=== PATIENT | male | born 1990 | race Caucasian/White ===

== ENCOUNTER 2021-03-16 21:44 | Emergency (ER) | payer OTHER ==
[2021-03-16 22:22] VITALS: BMI 21.6
[2021-03-16] MEDS ORDERED: MAG HYDROX/AL HYDROX/SIMETH 30 ML UNIT-DOSE CUP PO ONE (23:54)
[2021-03-16] MEDS ORDERED: FAMOTIDINE 20 MG/50 ML IVPB 20 MG/50 ML MG IVPB ONE (23:54)
[2021-03-16] MEDS ORDERED: ONDANSETRON 4 MG/2 ML VIAL IVPUSH ONE (23:54)
[2021-03-16] MEDS ORDERED: ACETAMINOPHEN 1000 MG/100 ML VIAL (NON FORMULARY) IVPB ONE (23:54)
[2021-03-17] MEDS ORDERED: MAG HYDROX/AL HYDROX/SIMETH 30 ML UNIT-DOSE CUP ONE (00:29)
[2021-03-17] MEDS ORDERED: ACETAMINOPHEN INJECTION 100 ML IVPB ONE (00:30)
[2021-03-17] MEDS ORDERED: FAMOTIDINE 20 MG/50 ML IVPB 20 MG/50 ML MG IVPB ONE (00:31)
[2021-03-17] MEDS ORDERED: ONDANSETRON 4 MG/2 ML VIAL ONE (00:31)
[2021-03-17 00:42] LABS: BASO % 0.6 % (0-2.0); HEMATOCRIT 46.8 % (35.4-49); HEMOGLOBIN 15.5 GM/dL (11.7-16.9); LYMPH % 8.6 % (8-40); MCH 25.1 pg (25.7-33.7); MCHC 33.1 g/dl (32.0-35.9); MEAN CELL VOLUME 75.9 fl (80-96); MEAN PLT VOLUME 9.3 fl (7.5-11.1); MONO % 5.5 % (3.8-10.2); NEUT % 85.3 % (42.8-82.8); PLATELET COUNT 144 10^3/uL (134-434); RBC 6.16 M/mm3 (4.00-5.60); RDW 16.1 % (11.9-15.9); WHITE BLOOD COUNT 7.2 K/mm3 (4.0-10.0)
[2021-03-17 01:10] LABS: CREATININE 1.5 mg/dL (0.55-1.3)
[2021-03-17 01:11] LABS: BILIRUBIN,TOTAL 0.4 mg/dL (0.2-1)
[2021-03-17 01:24] VITALS: BP 123/79; PULSE 76; TEMP 98.1
[2021-03-17] MEDS ORDERED: SODIUM CHLORIDE 0.9% 500 ML INFUS.BAG IV ONE (02:31)
== END 2021-03-17 03:31 | disposition home or self-care (01) ==
LOC: JER 21:44
PROC: 3E0333Z Introduction of Anti-inflammatory into Peripheral Vein, Percutaneous Approach (ICD-10-PCS; principal; 2021-03-16)
PROC: 3E033GC Introduction of Other Therapeutic Substance into Peripheral Vein, Percutaneous Approach (ICD-10-PCS; 2021-03-16)
PROC: 3E033GC Introduction of Other Therapeutic Substance into Peripheral Vein, Percutaneous Approach (ICD-10-PCS; 2021-03-16)
DX: U07.1 COVID-19 (principal); R05 Cough; M79.10 Myalgia, unspecified site
CPT/HCPCS: 36415; 71045-TC-FY; 80053; 85025; 87804; 93005; 93010; 99285-25; C9803; J0131; U0003; U0005

== ENCOUNTER 2021-03-18 17:13 | Inpatient (IN) | payer OTHER ==
[2021-03-18] MEDS ORDERED: ONDANSETRON 4 MG/2 ML VIAL IVPB ONE (17:50)
[2021-03-18] MEDS ORDERED: SODIUM CHLORIDE 0.9% 500 ML INFUS.BAG IV ONE (17:50)
[2021-03-18] MEDS ORDERED: ACETAMINOPHEN 1000 MG/100 ML VIAL (NON FORMULARY) IVPB ONE (17:50)
[2021-03-18] MEDS ORDERED: HEPARIN NA (PORCINE) 5,000 UNITS/ML 1ML VIAL ONE (17:52)
[2021-03-18] MEDS ORDERED: DEXAMETHASONE SOD PHOSPHATE 10 MG/1 ML VIAL IVPUSH ONE ×2 (17:56)
[2021-03-18] MEDS ORDERED: DEXAMETHASONE SOD PHOSPHATE 10 MG/1 ML VIAL ONE (18:03)
[2021-03-18] MEDS ORDERED: ONDANSETRON 4 MG/2 ML VIAL ONE (18:03)
[2021-03-18] MEDS ORDERED: ACETAMINOPHEN INJECTION 100 ML IVPB ONE (18:03)
[2021-03-18 18:32] LABS: HEMATOCRIT 45.4 % (35.4-49); HEMOGLOBIN 15.1 GM/dL (11.7-16.9); MCH 25.3 pg (25.7-33.7); MCHC 33.3 g/dl (32.0-35.9); MEAN CELL VOLUME 75.8 fl (80-96); MEAN PLT VOLUME 9.1 fl (7.5-11.1); PLATELET COUNT 142 10^3/uL (134-434); RBC 5.99 M/mm3 (4.00-5.60); RDW 15.7 % (11.9-15.9)
[2021-03-18 18:47] LABS: CHLORIDE 101 mmol/L (98-107); SODIUM 136 mmol/L (136-145)
[2021-03-18 18:49] LABS: ALBUMIN 3.4 g/dl (3.4-5.0); CALCIUM 8.2 mg/dL (8.5-10.1)
[2021-03-18 18:50] LABS: ANION GAP 10 MMOL/L (8-16); BLOOD UREA NITROGEN 11.8 mg/dL (7-18); CO2 25 mmol/L (21-32); GLUCOSE,RANDOM 107 mg/dL (74-106)
[2021-03-18 18:52] LABS: SGPT/ALT 70 U/L (13-61)
[2021-03-18 18:53] LABS: CREATININE 1.4 mg/dL (0.55-1.3); SGOT/AST 57 U/L (15-37)
[2021-03-18 18:54] LABS: BILIRUBIN,TOTAL 0.4 mg/dL (0.2-1); TOT PROT 7.4 g/dl (6.4-8.2)
[2021-03-18 18:55] LABS: ALK PHOS 45 U/L (45-117)
[2021-03-18] MEDS ORDERED: AZITHROMYCIN IVPB 500 MG in DEXTROSE 5%-WATER - 250 ML IVPB ONE (20:48)
[2021-03-18] MEDS ORDERED: CEFTRIAXONE 1,000 MG in DEXTROSE 5%-WATER - 50 ML IVPB ONE (20:48)
[2021-03-18] MEDS ORDERED: CEFTRIAXONE 1 GM/50 ML BAG ONE (20:57)
[2021-03-18] MEDS ORDERED: AZITHROMYCIN IVPB 500 MG/250 ML BAG IVPB ONE (20:57)
[2021-03-19] MEDS ORDERED: ACETAMINOPHEN 325 MG TABLET (FP) PO PRN (01:10)
[2021-03-19] MEDS ORDERED: FAMOTIDINE 20 MG TABLET ONE ×3 (01:50→08:40)
[2021-03-19] MEDS: SODIUM CHLORIDE 1,000 ML IV SCH (02:00)
[2021-03-19] MEDS: FAMOTIDINE 20 MG TABLET PO SCH ×3 (02:18→21:32)
[2021-03-19 06:06] LABS: ALBUMIN 3.2 g/dl (3.4-5.0); BLOOD UREA NITROGEN 10.7 mg/dL (7-18); CALCIUM 7.8 mg/dL (8.5-10.1); MAGNESIUM 2.3 mg/dL (1.8-2.4)
[2021-03-19 06:09] LABS: CREATININE 1.1 mg/dL (0.55-1.3)
[2021-03-19 06:10] LABS: PHOSPHOROUS 3.5 mg/dL (2.5-4.9)
[2021-03-19 06:11] LABS: BILIRUBIN,TOTAL 0.3 mg/dL (0.2-1); TOT PROT 7.1 g/dl (6.4-8.2)
[2021-03-19] MEDS ORDERED: HEPARIN NA (PORCINE) 5,000 UNITS/ML 1ML VIAL ONE ×2 (06:17→12:44)
[2021-03-19 06:25] LABS: BASO % 0.4 % (0-2.0); HEMATOCRIT 45.5 % (35.4-49); HEMOGLOBIN 14.7 GM/dL (11.7-16.9); LYMPH % 8.9 % (8-40); MCH 24.6 pg (25.7-33.7); MCHC 32.3 g/dl (32.0-35.9); MEAN CELL VOLUME 76.3 fl (80-96); MEAN PLT VOLUME 9.4 fl (7.5-11.1); MONO % 4.2 % (3.8-10.2); NEUT % 86.5 % (42.8-82.8); PLATELET COUNT 153 10^3/uL (134-434); RBC 5.96 M/mm3 (4.00-5.60); RDW 15.6 % (11.9-15.9); WHITE BLOOD COUNT 6.5 K/mm3 (4.0-10.0)
[2021-03-19] MEDS ORDERED: ASCORBIC ACID 500 MG TABLET (FP) ONE (08:39)
[2021-03-19] MEDS ORDERED: DEXAMETHASONE 4 MG TABLET (FP) ONE (08:40)
[2021-03-19] MEDS ORDERED: CHOLECALCIFEROL (VIT D3) 1,000 UNIT (25 MCG) TABLET ONE (08:40)
[2021-03-19] MEDS ORDERED: ZINC SULFATE 220 MG CAPSULE (FP) ONE (08:40)
[2021-03-19] MEDS: ZINC SULFATE 220 MG CAPSULE (FP) PO SCH (09:17)
[2021-03-19] MEDS: ASCORBIC ACID 500 MG TABLET (FP) PO SCH ×2 (09:17→21:32)
[2021-03-19] MEDS: CHOLECALCIFEROL (VIT D3) 1,000 UNIT (25 MCG) TABLET PO SCH (09:17)
[2021-03-19] MEDS ORDERED: DEXAMETHASONE 4 MG TABLET (FP) PO SCH (10:00)
[2021-03-19] MEDS ORDERED: REMDESIVIR 200 MG in SODIUM CHLORIDE 250 ML IVPB ONE (13:00)
[2021-03-19] MEDS: HEPARIN NA (PORCINE) 5,000 UNITS/ML 1ML VIAL SQ SCH ×2 (13:02→21:32)
[2021-03-19] MEDS ORDERED: CEFTRIAXONE 1 GM/50 ML BAG ONE (15:18)
[2021-03-19] MEDS: CEFTRIAXONE 1 GM in DEXTROSE 5%-WATER - 50 ML IVPB SCH (15:20)
[2021-03-19] MEDS ORDERED: AZITHROMYCIN IVPB 500 MG/250 ML BAG IVPB ONE (17:25)
[2021-03-19] MEDS: AZITHROMYCIN IVPB 500 MG/250 ML BAG IVPB SCH (17:40)
[2021-03-19 21:40] LABS: HIV INTERPRETATION NEGATIVE (NEGATIVE)
[2021-03-20] MEDS: SODIUM CHLORIDE 1,000 ML IV SCH (06:05)
[2021-03-20] MEDS: HEPARIN NA (PORCINE) 5,000 UNITS/ML 1ML VIAL SQ SCH ×4 (06:06→21:53)
[2021-03-20 07:19] LABS: BASO % 0.2 % (0-2.0); HEMATOCRIT 40.8 % (35.4-49); HEMOGLOBIN 13.6 GM/dL (11.7-16.9); LYMPH % 4.6 % (8-40); MCHC 33.3 g/dl (32.0-35.9); MEAN CELL VOLUME 75.3 fl (80-96); MONO % 3.1 % (3.8-10.2); NEUT % 92.1 % (42.8-82.8); PLATELET COUNT 186 10^3/uL (134-434); RBC 5.42 M/mm3 (4.00-5.60); RDW 15.9 % (11.9-15.9); WHITE BLOOD COUNT 11.6 K/mm3 (4.0-10.0)
[2021-03-20 07:36] LABS: BLOOD UREA NITROGEN 12.7 mg/dL (7-18); MAGNESIUM 1.9 mg/dL (1.8-2.4)
[2021-03-20 07:38] LABS: CREATININE 1.1 mg/dL (0.55-1.3); PHOSPHOROUS 2.9 mg/dL (2.5-4.9)
[2021-03-20 07:41] LABS: BILIRUBIN,TOTAL 0.3 mg/dL (0.2-1); TOT PROT 6.6 g/dl (6.4-8.2)
[2021-03-20] MEDS ORDERED: cefTRIAXone SODIUM 1 GM VIAL ONE (09:04)
[2021-03-20] MEDS ORDERED: DEXTROSE 5%-WATER - 50 ML IVPB ONE (09:04)
[2021-03-20] MEDS: CEFTRIAXONE 1 GM in DEXTROSE 5%-WATER - 50 ML IVPB SCH (09:14)
[2021-03-20] MEDS: DEXAMETHASONE SOD PHOSPHATE 4 MG/1 ML VIAL IVPUSH SCH (09:14)
[2021-03-20] MEDS: CHOLECALCIFEROL (VIT D3) 1,000 UNIT (25 MCG) TABLET PO SCH (09:14)
[2021-03-20] MEDS: ASCORBIC ACID 500 MG TABLET (FP) PO SCH ×2 (09:14→21:53)
[2021-03-20] MEDS: FAMOTIDINE 20 MG TABLET PO SCH ×2 (09:14→21:53)
[2021-03-20] MEDS: ZINC SULFATE 220 MG CAPSULE (FP) PO SCH (09:15)
[2021-03-20 09:47] LABS: ANISOCYTOSIS 0; MACROCYTOSIS 0; PLATELET ESTIMATE NORMAL
[2021-03-20 14:35] VITALS: BMI 38.1
[2021-03-20] MEDS: REMDESIVIR 100 MG in SODIUM CHLORIDE 250 ML IVPB SCH (14:48)
[2021-03-20] MEDS ORDERED: ONDANSETRON 4 MG/2 ML VIAL IVPUSH PRN (17:32)
[2021-03-20] MEDS: AZITHROMYCIN IVPB 500 MG/250 ML BAG IVPB SCH (18:27)
[2021-03-20] MEDS ORDERED: MELATONIN 5 MG TABLETS PO ONE (21:00)
[2021-03-21] MEDS: SODIUM CHLORIDE 1,000 ML IV SCH
[2021-03-21] MEDS: HEPARIN NA (PORCINE) 5,000 UNITS/ML 1ML VIAL SQ SCH ×3 (06:36→21:42)
[2021-03-21 07:39] LABS: HEMATOCRIT 41.6 % (35.4-49); HEMOGLOBIN 13.7 GM/dL (11.7-16.9); MCHC 32.9 g/dl (32.0-35.9); MEAN PLT VOLUME 8.6 fl (7.5-11.1); PLATELET COUNT 225 10^3/uL (134-434); RBC 5.48 M/mm3 (4.00-5.60); RDW 15.6 % (11.9-15.9); WHITE BLOOD COUNT 13.4 K/mm3 (4.0-10.0)
[2021-03-21 08:15] LABS: ALBUMIN 2.8 g/dl (3.4-5.0); BLOOD UREA NITROGEN 15.5 mg/dL (7-18); CALCIUM 8.3 mg/dL (8.5-10.1); MAGNESIUM 2.4 mg/dL (1.8-2.4)
[2021-03-21 08:19] LABS: BILIRUBIN,TOTAL 0.5 mg/dL (0.2-1); PHOSPHOROUS 4.4 mg/dL (2.5-4.9)
[2021-03-21 08:20] LABS: TOT PROT 6.5 g/dl (6.4-8.2)
[2021-03-21 10:22] LABS: ANISOCYTOSIS 0; MACROCYTOSIS 0; PLATELET ESTIMATE NORMAL
[2021-03-21] MEDS ORDERED: DEXTROSE 5%-WATER - 50 ML IVPB ONE (10:26)
[2021-03-21] MEDS ORDERED: cefTRIAXone SODIUM 1 GM VIAL ONE (10:26)
[2021-03-21] MEDS: CEFTRIAXONE 1 GM in DEXTROSE 5%-WATER - 50 ML IVPB SCH (10:30)
[2021-03-21] MEDS: DEXAMETHASONE SOD PHOSPHATE 4 MG/1 ML VIAL IVPUSH SCH (10:30)
[2021-03-21] MEDS: ZINC SULFATE 220 MG CAPSULE (FP) PO SCH (10:30)
[2021-03-21] MEDS: FAMOTIDINE 20 MG TABLET PO SCH ×2 (10:31→21:42)
[2021-03-21] MEDS: ASCORBIC ACID 500 MG TABLET (FP) PO SCH ×2 (10:31→21:42)
[2021-03-21] MEDS: CHOLECALCIFEROL (VIT D3) 1,000 UNIT (25 MCG) TABLET PO SCH (10:31)
[2021-03-21] MEDS ORDERED: PT OWN MED DRAWER 7, Y5N ONE (12:29)
[2021-03-21] MEDS: REMDESIVIR 100 MG in SODIUM CHLORIDE 250 ML IVPB SCH (13:24)
[2021-03-21] MEDS ORDERED: ALBUTEROL SO4 2.5/IPRATROPIUM 0.5 INH SOL 3 ML VIAL.NEB. NEB ONE (14:15)
[2021-03-21] MEDS ORDERED: BUDESONIDE 0.5 MG/2 ML INH SUSP VIAL NEB ONE (14:30)
[2021-03-21] MEDS: BUDESONIDE/FORMETEROL FUMARATE 160/4.5 mcg INHALER IH SCH ×2 (14:30→21:49)
[2021-03-21] MEDS: BUDESONIDE 0.5 MG/2 ML INH SUSP VIAL NEB SCH ×2 (15:23→21:00)
[2021-03-21] MEDS: ALBUTEROL SO4 2.5/IPRATROPIUM 0.5 INH SOL 3 ML VIAL.NEB. NEB SCH ×2 (15:24→20:58)
[2021-03-21] MEDS ORDERED: ALBUTEROL SO4 2.5/IPRATROPIUM 0.5 INH SOL 3 ML VIAL.NEB. NEB SCH (16:00)
[2021-03-21] MEDS: AZITHROMYCIN IVPB 500 MG/250 ML BAG IVPB SCH (17:15)
[2021-03-21] MEDS ORDERED: MELATONIN 5 MG TABLETS PO ONE (22:00)
[2021-03-22] MEDS: HEPARIN NA (PORCINE) 5,000 UNITS/ML 1ML VIAL SQ SCH ×3 (06:07→22:03)
[2021-03-22 07:49] LABS: BASO % 0.2 % (0-2.0); HEMATOCRIT 40.5 % (35.4-49); HEMOGLOBIN 13.5 GM/dL (11.7-16.9); LYMPH % 3.9 % (8-40); MCH 25.3 pg (25.7-33.7); MCHC 33.5 g/dl (32.0-35.9); MEAN CELL VOLUME 75.6 fl (80-96); MEAN PLT VOLUME 8.8 fl (7.5-11.1); MONO % 6.9 % (3.8-10.2); PLATELET COUNT 269 10^3/uL (134-434); RBC 5.35 M/mm3 (4.00-5.60); RDW 15.8 % (11.9-15.9); WHITE BLOOD COUNT 13.5 K/mm3 (4.0-10.0)
[2021-03-22 08:16] LABS: BLOOD UREA NITROGEN 16.1 mg/dL (7-18); CALCIUM 8.1 mg/dL (8.5-10.1)
[2021-03-22 08:18] LABS: ALBUMIN 2.7 g/dl (3.4-5.0); BILIRUBIN,TOTAL 0.2 mg/dL (0.2-1); MAGNESIUM 2.5 mg/dL (1.8-2.4); TOT PROT 6.4 g/dl (6.4-8.2)
[2021-03-22 08:33] LABS: ANISOCYTOSIS 0; HELMET CELLS 0; HOWELL-JOLLY BODIES 0; MACROCYTOSIS 0; OVALOCYTE 0; PLATELET ESTIMATE NORMAL; ROULEAU 0; SICKELED CELLS 0; TARGET CELLS 0; TEAR DROP CELLS 0; TOXIC GRANULATION 0
[2021-03-22] MEDS: ALBUTEROL SO4 2.5/IPRATROPIUM 0.5 INH SOL 3 ML VIAL.NEB. NEB SCH (08:44)
[2021-03-22] MEDS ORDERED: cefTRIAXone SODIUM 1 GM VIAL ONE (09:44)
[2021-03-22] MEDS ORDERED: DEXTROSE 5%-WATER - 50 ML IVPB ONE (09:44)
[2021-03-22] MEDS: DEXAMETHASONE SOD PHOSPHATE 4 MG/1 ML VIAL IVPUSH SCH (09:50)
[2021-03-22] MEDS: ASCORBIC ACID 500 MG TABLET (FP) PO SCH ×2 (09:51→22:03)
[2021-03-22] MEDS: FAMOTIDINE 20 MG TABLET PO SCH ×2 (09:51→22:03)
[2021-03-22] MEDS: CEFTRIAXONE 1 GM in DEXTROSE 5%-WATER - 50 ML IVPB SCH (09:51)
[2021-03-22] MEDS: CHOLECALCIFEROL (VIT D3) 1,000 UNIT (25 MCG) TABLET PO SCH (09:51)
[2021-03-22] MEDS: ZINC SULFATE 220 MG CAPSULE (FP) PO SCH (09:51)
[2021-03-22] MEDS: BUDESONIDE/FORMETEROL FUMARATE 160/4.5 mcg INHALER IH SCH (10:05)
[2021-03-22] MEDS ORDERED: TOCILIZUMAB (ACTEMRA) 200 MG/10 ML VIAL IVPB ONE (13:54)
[2021-03-22] MEDS: REMDESIVIR 100 MG in SODIUM CHLORIDE 250 ML IVPB SCH (14:04)
[2021-03-22] MEDS ORDERED: TOCILIZUMAB 800 MG in SODIUM CHLORIDE 60 ML IVPB ONE (15:15)
[2021-03-22] MEDS: AZITHROMYCIN IVPB 500 MG/250 ML BAG IVPB SCH (18:25)
[2021-03-22] MEDS ORDERED: BUDESONIDE 0.25 MG/2ML INH SUSP VIAL NEB SCH (20:00)
[2021-03-23] MEDS: HEPARIN NA (PORCINE) 5,000 UNITS/ML 1ML VIAL SQ SCH ×3 (06:19→21:56)
[2021-03-23 08:59] LABS: BASO % 0.5 % (0-2.0); HEMATOCRIT 43.6 % (35.4-49); HEMOGLOBIN 14.5 GM/dL (11.7-16.9); LYMPH % 7.2 % (8-40); MCH 25.5 pg (25.7-33.7); MCHC 33.2 g/dl (32.0-35.9); MEAN CELL VOLUME 76.8 fl (80-96); MEAN PLT VOLUME 8.5 fl (7.5-11.1); MONO % 5.7 % (3.8-10.2); NEUT % 86.6 % (42.8-82.8); PLATELET COUNT 301 10^3/uL (134-434); RBC 5.68 M/mm3 (4.00-5.60); RDW 16.1 % (11.9-15.9); WHITE BLOOD COUNT 13.9 K/mm3 (4.0-10.0)
[2021-03-23 09:26] LABS: CALCIUM 8.6 mg/dL (8.5-10.1)
[2021-03-23 09:27] LABS: ALBUMIN 2.8 g/dl (3.4-5.0); BLOOD UREA NITROGEN 16.9 mg/dL (7-18); MAGNESIUM 2.4 mg/dL (1.8-2.4)
[2021-03-23 09:30] LABS: CREATININE 0.9 mg/dL (0.55-1.3)
[2021-03-23 09:31] LABS: BILIRUBIN,TOTAL 0.3 mg/dL (0.2-1); PHOSPHOROUS 3.8 mg/dL (2.5-4.9); TOT PROT 6.8 g/dl (6.4-8.2)
[2021-03-23] MEDS ORDERED: cefTRIAXone SODIUM 1 GM VIAL ONE (09:43)
[2021-03-23] MEDS ORDERED: DEXTROSE 5%-WATER - 50 ML IVPB ONE (09:44)
[2021-03-23] MEDS: CEFTRIAXONE 1 GM in DEXTROSE 5%-WATER - 50 ML IVPB SCH (09:46)
[2021-03-23] MEDS: FAMOTIDINE 20 MG TABLET PO SCH ×2 (09:47→21:56)
[2021-03-23] MEDS: DEXAMETHASONE SOD PHOSPHATE 4 MG/1 ML VIAL IVPUSH SCH (09:47)
[2021-03-23] MEDS: CHOLECALCIFEROL (VIT D3) 1,000 UNIT (25 MCG) TABLET PO SCH (09:47)
[2021-03-23 09:53] LABS: ANISOCYTOSIS 0; HELMET CELLS 0; HOWELL-JOLLY BODIES 0; MACROCYTOSIS 0; OVALOCYTE 0; PLATELET ESTIMATE NORMAL; ROULEAU 0; SICKELED CELLS 0; TARGET CELLS 0; TEAR DROP CELLS 0; TOXIC GRANULATION 0
[2021-03-23] MEDS: REMDESIVIR 100 MG in SODIUM CHLORIDE 250 ML IVPB SCH (12:29)
[2021-03-24] MEDS: HEPARIN NA (PORCINE) 5,000 UNITS/ML 1ML VIAL SQ SCH ×3 (06:50→21:52)
[2021-03-24] MEDS: CHOLECALCIFEROL (VIT D3) 1,000 UNIT (25 MCG) TABLET PO SCH (10:04)
[2021-03-24] MEDS: FAMOTIDINE 20 MG TABLET PO SCH ×2 (10:05→21:52)
[2021-03-24] MEDS: DEXAMETHASONE SOD PHOSPHATE 4 MG/1 ML VIAL IVPUSH SCH (10:05)
[2021-03-24] MEDS: AMINO ACIDS/PROTEIN HYDROLYS 30 ML LIQUID.PKT PO SCH (17:13)
[2021-03-25] MEDS: HEPARIN NA (PORCINE) 5,000 UNITS/ML 1ML VIAL SQ SCH ×3 (05:59→21:39)
[2021-03-25] MEDS: AMINO ACIDS/PROTEIN HYDROLYS 30 ML LIQUID.PKT PO SCH ×2 (08:33→17:22)
[2021-03-25 08:53] LABS: BASO % 0.2 % (0-2.0); EOS % 0.3 % (0-4.5); HEMATOCRIT 45.1 % (35.4-49); LYMPH % 7.6 % (8-40); MCH 25.2 pg (25.7-33.7); MCHC 33.3 g/dl (32.0-35.9); MEAN CELL VOLUME 75.9 fl (80-96); NEUT % 86.9 % (42.8-82.8); PLATELET COUNT 346 10^3/uL (134-434); RBC 5.94 M/mm3 (4.00-5.60); WHITE BLOOD COUNT 13.8 K/mm3 (4.0-10.0)
[2021-03-25 09:11] LABS: CALCIUM 8.9 mg/dL (8.5-10.1)
[2021-03-25 09:12] LABS: ALBUMIN 2.9 g/dl (3.4-5.0); BLOOD UREA NITROGEN 23.7 mg/dL (7-18)
[2021-03-25 09:16] LABS: BILIRUBIN,TOTAL 0.3 mg/dL (0.2-1)
[2021-03-25 09:17] LABS: TOT PROT 6.6 g/dl (6.4-8.2)
[2021-03-25] MEDS: FAMOTIDINE 20 MG TABLET PO SCH ×2 (09:29→21:39)
[2021-03-25] MEDS: CHOLECALCIFEROL (VIT D3) 1,000 UNIT (25 MCG) TABLET PO SCH (09:29)
[2021-03-25] MEDS: DEXAMETHASONE SOD PHOSPHATE 4 MG/1 ML VIAL IVPUSH SCH (09:29)
[2021-03-25] MEDS: MULTIVITAMINS THER W-MINERALS COMBO TABLET (FP) PO SCH (09:29)
[2021-03-25 11:32] LABS: ANISOCYTOSIS 0; HELMET CELLS 0; HOWELL-JOLLY BODIES 0; MACROCYTOSIS 0; OVALOCYTE 0; PLATELET ESTIMATE NORMAL; ROULEAU 0; SICKELED CELLS 0; TARGET CELLS 0; TEAR DROP CELLS 0; TOXIC GRANULATION 0
[2021-03-26] MEDS: HEPARIN NA (PORCINE) 5,000 UNITS/ML 1ML VIAL SQ SCH ×3 (06:31→22:07)
[2021-03-26] MEDS ORDERED: PT OWN MED DRAWER 7, Y5N ONE (08:55)
[2021-03-26] MEDS: FAMOTIDINE 20 MG TABLET PO SCH ×2 (09:25→22:07)
[2021-03-26] MEDS: DEXAMETHASONE SOD PHOSPHATE 4 MG/1 ML VIAL IVPUSH SCH (09:25)
[2021-03-26] MEDS: MULTIVITAMINS THER W-MINERALS COMBO TABLET (FP) PO SCH (09:26)
[2021-03-26] MEDS: AMINO ACIDS/PROTEIN HYDROLYS 30 ML LIQUID.PKT PO SCH ×2 (09:26→17:47)
[2021-03-26] MEDS: CHOLECALCIFEROL (VIT D3) 1,000 UNIT (25 MCG) TABLET PO SCH (09:26)
[2021-03-27] MEDS: HEPARIN NA (PORCINE) 5,000 UNITS/ML 1ML VIAL SQ SCH ×3 (06:18→22:14)
[2021-03-27] MEDS: AMINO ACIDS/PROTEIN HYDROLYS 30 ML LIQUID.PKT PO SCH ×2 (08:30→16:42)
[2021-03-27] MEDS ORDERED: PT OWN MED DRAWER 7, Y5N ONE (09:51)
[2021-03-27] MEDS: DEXAMETHASONE SOD PHOSPHATE 4 MG/1 ML VIAL IVPUSH SCH (10:03)
[2021-03-27] MEDS: FAMOTIDINE 20 MG TABLET PO SCH ×2 (10:04→22:14)
[2021-03-27] MEDS: MULTIVITAMINS THER W-MINERALS COMBO TABLET (FP) PO SCH (10:04)
[2021-03-27] MEDS: CHOLECALCIFEROL (VIT D3) 1,000 UNIT (25 MCG) TABLET PO SCH (10:05)
[2021-03-28] MEDS: HEPARIN NA (PORCINE) 5,000 UNITS/ML 1ML VIAL SQ SCH ×3 (06:03→22:11)
[2021-03-28] MEDS: FAMOTIDINE 20 MG TABLET PO SCH ×2 (09:55→22:11)
[2021-03-28] MEDS: CHOLECALCIFEROL (VIT D3) 1,000 UNIT (25 MCG) TABLET PO SCH (09:55)
[2021-03-28] MEDS: AMINO ACIDS/PROTEIN HYDROLYS 30 ML LIQUID.PKT PO SCH ×2 (09:55→18:26)
[2021-03-28] MEDS: DEXAMETHASONE SOD PHOSPHATE 4 MG/1 ML VIAL IVPUSH SCH (09:55)
[2021-03-28] MEDS: MULTIVITAMINS THER W-MINERALS COMBO TABLET (FP) PO SCH (09:56)
[2021-03-28 11:54] LABS: HEMOGLOBIN 14.3 GM/dL (11.7-16.9); MCH 25.1 pg (25.7-33.7); MCHC 32.6 g/dl (32.0-35.9); MEAN CELL VOLUME 77.2 fl (80-96); MEAN PLT VOLUME 8.6 fl (7.5-11.1); PLATELET COUNT 292 10^3/uL (134-434); RBC 5.69 M/mm3 (4.00-5.60); RDW 16.3 % (11.9-15.9); WHITE BLOOD COUNT 14.3 K/mm3 (4.0-10.0)
[2021-03-28 12:15] LABS: CALCIUM 8.6 mg/dL (8.5-10.1)
[2021-03-28 12:16] LABS: BLOOD UREA NITROGEN 22.2 mg/dL (7-18); MAGNESIUM 1.9 mg/dL (1.8-2.4)
[2021-03-28 12:19] LABS: CREATININE 1.3 mg/dL (0.55-1.3); PHOSPHOROUS 3.1 mg/dL (2.5-4.9)
[2021-03-29] MEDS: HEPARIN NA (PORCINE) 5,000 UNITS/ML 1ML VIAL SQ SCH ×3 (06:11→22:21)
[2021-03-29] MEDS: CHOLECALCIFEROL (VIT D3) 1,000 UNIT (25 MCG) TABLET PO SCH (09:02)
[2021-03-29] MEDS: ZINC SULFATE 220 MG CAPSULE (FP) PO SCH (09:02)
[2021-03-29] MEDS: AMINO ACIDS/PROTEIN HYDROLYS 30 ML LIQUID.PKT PO SCH ×2 (09:02→18:20)
[2021-03-29] MEDS: MULTIVITAMINS THER W-MINERALS COMBO TABLET (FP) PO SCH (09:02)
[2021-03-29] MEDS: ASCORBIC ACID 500 MG TABLET (FP) PO SCH (09:03)
[2021-03-29] MEDS: DEXAMETHASONE SOD PHOSPHATE 4 MG/1 ML VIAL IVPUSH SCH (09:03)
[2021-03-29] MEDS: FAMOTIDINE 20 MG TABLET PO SCH ×2 (09:03→22:21)
[2021-03-29 20:10] LABS: SARS-CoV-2 NAA Not Detected (Not Detected)
[2021-03-30] MEDS: HEPARIN NA (PORCINE) 5,000 UNITS/ML 1ML VIAL SQ SCH ×3 (06:19→14:16)
[2021-03-30] MEDS: AMINO ACIDS/PROTEIN HYDROLYS 30 ML LIQUID.PKT PO SCH ×2 (08:55→17:11)
[2021-03-30] MEDS: MULTIVITAMINS THER W-MINERALS COMBO TABLET (FP) PO SCH (09:06)
[2021-03-30] MEDS: FAMOTIDINE 20 MG TABLET PO SCH (09:06)
[2021-03-30] MEDS: CHOLECALCIFEROL (VIT D3) 1,000 UNIT (25 MCG) TABLET PO SCH (09:06)
[2021-03-30] MEDS: ZINC SULFATE 220 MG CAPSULE (FP) PO SCH (09:06)
[2021-03-30] MEDS: ASCORBIC ACID 500 MG TABLET (FP) PO SCH (09:06)
[2021-03-30 19:04] VITALS: BP 149/73; PULSE 85; TEMP 98.3
== END 2021-03-30 19:32 | disposition home or self-care (01) | DRG 177 ==
LOC: JER 17:13 → JERBED 18:38 → J4S 03-19 19:29
PROVIDERS: ADMIT Internal Medicine; ATTEND Internal Medicine
PROC: XW033E5 Introduction of Remdesivir Anti-infective into Peripheral Vein, Percutaneous Approach, New Technology Group 5 (ICD-10-PCS; principal; 2021-03-19)
PROC: XW033H5 Introduction of Tocilizumab into Peripheral Vein, Percutaneous Approach, New Technology Group 5 (ICD-10-PCS; 2021-03-22)
DX: U07.1 COVID-19 (principal); J12.82 Pneumonia due to coronavirus disease 2019; J96.01 Acute respiratory failure with hypoxia; N17.9 Acute kidney failure, unspecified; M62.82 Rhabdomyolysis; D50.9 Iron deficiency anemia, unspecified; R91.8 Other nonspecific abnormal finding of lung field; E86.0 Dehydration; D72.829 Elevated white blood cell count, unspecified
CPT/HCPCS: 36415; 71045-TC-FY; 71250-TC; 80048; 80053; 82550; 82553; 82728; 83615; 83735; 84100; 84436; 84443; 84484; 85025; 85027; 85379; 85651; 86140; 86738; 86769; 87040; 87070; 87205; 87389; 87899; 93005; 93010; 94010; 94640; 94660; 94761; 97116-GP; 97161-GP; 99285-25; C9399; C9803; J0131; J1100; J1644; J3262; U0003; U0005